=== PATIENT | male | born 1980 | race Caucasian/White ===

== ENCOUNTER 2023-07-28 09:43 | Emergency (ER) | payer OTHER ==
[~2023-07-28] VITALS: Ht 172.7 cm; Wt 77.1 kg
[~2023-07-28 09:43] MED LIST: SULF1TAB48 PO
[2023-07-28] MEDS ORDERED: LIDOCAINE HCL/PF 1% 30 ML SDV ONE (09:59)
[2023-07-28] MEDS ORDERED: IBUP-1955 PO (10:09)
[2023-07-28 10:18] VITALS: BP 122/74; TEMP 98.2; O2SAT 100
== END 2023-07-28 10:19 | disposition home or self-care (01) ==
LOC: ER 09:53
DX: M70.21 Olecranon bursitis, right elbow (principal); Y93.89 Activity, other specified
CPT/HCPCS: 99282; A6407 ×2; J3490